=== PATIENT | female | born 1945 | race Caucasian/White ===

== ENCOUNTER 2018-02-27 14:42 | Outpatient (CLI) | payer MEDICARE | END 2018-02-27 14:43 | disposition home or self-care (01) | LOC: BICMAMMO 14:42 | PROVIDERS: ATTEND Nurse Practitioner Adult Health | DX: Z12.31 Encounter for screening mammogram for malignant neoplasm of breast (principal); N64.89 Other specified disorders of breast | CPT/HCPCS: 77063; 77067 ==

== ENCOUNTER 2018-03-16 13:41 | Outpatient (CLI) | payer MEDICARE ==
--- NOTE | 2018-03-16 16:42 | ULT ---
LIMITED SONOGRAM RIGHT BREAST: HISTORY: Global asymmetry, right breast. Abnormal mammogram. FINDINGS: Sonographic evaluation of the superior and lateral aspect of the right breast, in the region of mammo graphic concern, shows scattered fibroglandular densities. No solid or cystic mass. No suspicious s hadowing. IMPRESSION: BI-RADS category 2-Benign findings. Suggest routine mammographic followup. POS: ANTIONETTE
== END 2018-03-16 13:42 | disposition home or self-care (01) ==
LOC: BICMAMMO 13:41
PROVIDERS: ATTEND Nurse Practitioner Adult Health
DX: R92.2 Inconclusive mammogram (principal); N64.89 Other specified disorders of breast
CPT/HCPCS: 76642; 77065; G0279